=== PATIENT | male | born 1990 | race African-American/Black ===

== ENCOUNTER 2019-09-19 14:52 | Emergency (ER) | payer OTHER ==
[2019-09-19 15:09] VITALS: BP 139/82
--- NOTE | 2019-09-19 15:25 | ED Physician Documentation ---
PD HPI URI - Stated complaint Stated Complaint: SORE THROAT/SWOLLEN TONSIL - Chief complaint Chief Complaint: Heent - History obtained from History obtained from: Patient - History of Present Illness Timing - onset: How many days ago (2) Timing duration: Days (2) Timing details: Abrupt onset, Still present Associated symptoms: Fever, Nasal congestion, Sore throat, Swollen nodes. No: Sinus pain, Dry cough, Dyspnea, NVD Contributing factors: Sick contact (his daughter has bronchiolitis this past week. No sore throat though.). No: Travel, Immunocompromised Review of Systems Constitutional: reports: Fever Nose: reports: Rhinorrhea / runny nose. denies: Sinus pressure / pain Throat: reports: Sore throat Respiratory: denies: Dyspnea, Cough GI: denies: Nausea, Vomiting, Diarrhea Skin: denies: Rash PD PAST MEDICAL HISTORY - Past Medical History Past Medical History: No - Present Medications Home Medications: Ambulatory Orders Medication Instructions Recorded Confirmed Cephalexin [Keflex] 1,000 mg PO BID #28 capsule 09/19/19 Diphenhydramine HCl [Allergy 12.5 mg PO Q6H PRN #120 ml 09/19/19 Relief] Hydrocodone/Acetaminophen 1 each PO Q6H PRN #12 tablet 09/19/19 [Hydrocodon-Acetaminophen 5-325] dexAMETHasone [Decadron] 4 mg PO DAILY #7 tablet 09/19/19 - Allergies Allergies/Adverse Reactions: Allergies Allergy/AdvReac Type Severity Reaction Status Date / Time No Known Drug Allergies Allergy Verified 09/19/19 15:07 PD ED PE NORMAL - Vitals Vital signs reviewed: Yes - General General: Alert and oriented X 3, Well developed/nourished - HEENT HEENT: Ears normal. No: Pharynx benign (He has slight muffling of his voice. He has pain with swallowing. The posterior pharynx shows swelling predominantly on the right side with enlargement of the tonsil and some spotty exudate. There is mild edema of the uvula. There is some mild swelling in the peritonsillar area with only minimal deviation of the tonsil towards midline. The left tonsil shows mild swelling and redness. There is no obviously palpable fluctuance towards the lateral aspect of the posterior pharynx. There is some anterior adenopathy on the right side.) - Neck Neck: Supple, no meningeal sign, Other (mild anterior adenopathy) - Cardiac Cardiac: RRR, No murmur - Respiratory Respiratory: Clear bilaterally - Derm Derm: Normal color, Warm and dry Results - Vitals Vitals: Oxygen O2 Source Room air - Labs Labs: Microbiology 09/19/19 15:10 Group A Strep Throat Culture - Final Throat Laboratory Tests 09/19/19 15:10 Group A Strep Rapid Negative PD MEDICAL DECISION MAKING - ED course Complexity details: considered differential (He has symptoms predominantly of the throat with fever. He has some peritonsillar swelling and tonsillar swelling. His rapid test is negative but I am still concern for bacterial infection given the clinical appearance and we will treat him empirically with antibiotics pending the culture result. We will also treat with steroids for the inflammation. It does not appear to be a peritonsillar abscess at this point so I did not attempt any drainage.), d/w patient Departure - Departure Disposition: Home, Self Care Clinical Impression: Peritonsillar cellulitis Acute tonsillitis Qualifiers: Pharyngitis/tonsillitis etiology: unspecified etiology Qualified Code(s): J03.90 - Acute tonsillitis, unspecified Condition: Stable Record reviewed to determine appropriate education?: Yes Instructions: ED Peritonsillar Infec Abx No I andD Follow-Up: RDOO THURSTON [Primary Care Provider] - Prescriptions: Cephalexin [Keflex] 1,000 mg PO BID #28 capsule dexAMETHasone [Decadron] 4 mg PO DAILY #7 tablet Diphenhydramine HCl [Allergy Relief] 12.5 mg PO Q6H PRN #120 ml PRN Reason: Pain Hydrocodone/Acetaminophen [Hydrocodon-Acetaminophen 5-325] 1 each PO Q6H PRN #12 tablet PRN Reason: pain Comments: Your rapid strep test is negative. The culture result in 2 days. Clinically I am concerned that your tonsil area appears more like a bacterial infection so we will start some antibiotics now pending the culture result. If the culture is negative then can stop the antibiotics at that point. Otherwise continue them for a week. Stay well-hydrated. Use Tylenol or ibuprofen if needed for pains and fevers. Decadron steroid daily for the next week. Cephalexin antibiotic as directed for a week. Off work today and tomorrow. Recheck if not improving well in the next day or 2 and return sooner if you have significant increase in swelling with difficulty swallowing breathing or breathing. He can use diphenhydramine liquid swish around and swallow to help with some of the pain in the back of the throat as well. Forms: Activity restrictions Discharge Date/Time: 09/19/19 15:58
[2019-09-19] MEDS ORDERED: cephALEXin 250 MG CAPSULE PO STA (15:37)
[2019-09-19] MEDS ORDERED: CHERRY SYRUP 10 ML UDC PO ONE (15:37)
[2019-09-19] MEDS ORDERED: DEXAMETHASONE 10 MG/ML VIAL PO STA (15:37)
[2019-09-19] MEDS ORDERED: ACETAMINOPHEN 325 MG TABLET PO STA (15:37)
[2019-09-19] MEDS ORDERED: IBUPROFEN 600 MG TABLET PO STA (15:37)
== END 2019-09-19 15:58 | disposition home or self-care (01) ==
LOC: ED 14:52
DX: J03.90 Acute tonsillitis, unspecified (principal)
CPT/HCPCS: 87070; 87430; 99284; A9270